=== PATIENT | female | born 1975 | race Caucasian/White ===

== ENCOUNTER 2016-08-21 14:14 | Emergency (ER) | payer OTHER, BC ==
[2016-08-21 14:23] VITALS: BP 112/70; PULSE 112; RESP 18; TEMP 98.2; O2SAT 99
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
== END 2016-08-21 16:05 | disposition home or self-care (01) ==
LOC: H.ER 14:14
DX: S16.1XXA Strain of muscle, fascia and tendon at neck level, initial encounter (principal); V43.52XA Car driver injured in collision with other type car in traffic accident, initial encounter; Y92.410 Unspecified street and highway as the place of occurrence of the external cause